=== PATIENT | female | born 1980 | race Caucasian/White ===

== ENCOUNTER → 2017-04-24 | Outpatient (CLI) | payer OTHER | END | disposition home or self-care (01) | LOC: C.LAB1850 15:35 | PROVIDERS: ATTEND Obstetrics & Gynecology | DX: Z31.69 Encounter for other general counseling and advice on procreation (principal) ==

== ENCOUNTER → 2017-04-24 | Outpatient (CLI) | payer OTHER | END | disposition home or self-care (01) | LOC: C.PAPS 09:31 | PROVIDERS: ATTEND Obstetrics & Gynecology | DX: Z12.4 Encounter for screening for malignant neoplasm of cervix (principal) ==

== ENCOUNTER → 2017-04-27 | Outpatient (CLI) | payer OTHER | END | disposition home or self-care (01) | LOC: C.LAB1850 12:10 | PROVIDERS: ATTEND Obstetrics & Gynecology | DX: E03.9 Hypothyroidism, unspecified (principal) ==

== ENCOUNTER → 2017-05-23 | Outpatient (CLI) | payer OTHER | END | disposition home or self-care (01) | LOC: C.LAB1850 15:29 | PROVIDERS: ATTEND Obstetrics & Gynecology | DX: E03.9 Hypothyroidism, unspecified (principal); Z31.41 Encounter for fertility testing ==

== ENCOUNTER → 2017-06-14 | Outpatient (CLI) | payer OTHER ==
--- NOTE | 2017-06-14 11:48 | DIAGNOSTIC IMAGING REPORT ---
HYSTEROSALPINGOGRAM CLINICAL HISTORY: 37 years-old Female with FERTILITY TESTING. FLUOROSCOPY TIME: 0.4 minutes. 4 images. TECHNIQUE: Hysterosalpingogram performed in conjunction with the [facility]. Radiology was present to provide fluoroscopy. FINDINGS: The endometrial canal appears normal in size and morphology. No endometrial contour abnormalities or filling defects. There is opacification of the fallopian tubes with bilateral spillage into the peritoneal cavity. IMPRESSION: 1. Normal morphologic appearance of the endometrial canal. 2. There is contrast spillage into the peritoneum bilaterally confirming bilateral fallopian tube patency. The above report was generated using voice recognition software. It may contain grammatical, syntax or spelling errors. Electronically signed by: Hugo Shelley M.D. 06/14/2017 11:47 AM Dictated Date/Time: 06/14/2017 11:46 AM
--- NOTE | 2017-06-14 14:58 | OPERATIVE REPORT ---
DATE OF OPERATION: 06/14/2017 PREOPERATIVE DIAGNOSIS: Infertility. POSTOPERATIVE DIAGNOSIS: Infertility. PROCEDURE: Hysterosalpingogram. SURGEON: Dr. Sarkar. ANESTHETIC: None. COMPLICATIONS: None. ESTIMATED BLOOD LOSS: None. SPECIMENS: None. PROCEDURE: Myranda was given review of how the procedure was done. Discussed risks and benefits and alternatives. Hystersalpingogram performed under sterile technique. A single tooth tenaculum clamped the anterior cervix and the cervical insertion device attached to the cervix. Fluoroscopy was used. We instilled radiopaque dye, was able to visualize a normal uterus and bilateral tubal spill. No abnormalities seen. Instruments removed from the cervix and vagina. The patient tolerated the procedure well. I attest to the content of the Intraoperative Record and any orders documented therein. Any exception s are noted below.
== END | disposition home or self-care (01) ==
LOC: C.RAD 11:04
PROVIDERS: ATTEND Obstetrics & Gynecology
DX: Z31.41 Encounter for fertility testing (principal)

== ENCOUNTER → 2017-09-13 | Outpatient (CLI) | payer OTHER ==
[2017-09-13 17:01] LABS: THYROID STIMULATING HORMONE 0.63 uIu/ml (0.300-4.500)
== END | disposition home or self-care (01) ==
LOC: C.LAB1850 15:09
PROVIDERS: ATTEND Internal Medicine Endocrinology, Diabetes & Metabolism
DX: E03.9 Hypothyroidism, unspecified (principal); E06.3 Autoimmune thyroiditis

== ENCOUNTER → 2018-01-12 | Outpatient (CLI) | payer OTHER | END | disposition home or self-care (01) | LOC: C.LAB1850 10:36 | PROVIDERS: ATTEND Internal Medicine Endocrinology, Diabetes & Metabolism | DX: E03.9 Hypothyroidism, unspecified (principal) ==